=== PATIENT | female | born 1955 | race African-American/Black ===

== ENCOUNTER 2018-06-17 13:51 | Inpatient (IN) | payer SELFPAY ==
[~2018-06-17] VITALS: Ht 167.6 cm; Wt 76.2 kg
[2018-06-17] MEDS ORDERED: methylPREDNISolone SOD SUCC 125 MG/2 ML VL IV ONE (14:45)
[2018-06-17 15:39] LABS: Basophils # (auto) 0.1 uL; Basophils % (auto) 0.8 % (0.0-2.0); Eosinophils # (auto) 0 uL; Eosinophils % (auto) 0.1 % (0.0-7.0); Hematocrit 43.2 % (36.0-46.0); Hemoglobin 14.4 g/dL (12.2-16.2); Lymphocytes # (auto) 1.1 uL; Lymphocytes % (auto) 16.4 % (10.0-50.0); Mean Corpuscular Hemoglobin 29.1 pg (28.0-32.0); Mean Corpuscular Hgb Conc. 33.3 g/dL (32.0-36.0); Mean Corpuscular Volume 87.5 fL (80.0-100.0); Monocytes # (auto) 0.5 uL; Monocytes % (auto) 7.8 % (0.0-12.0); Neutrophils # (auto) 4.8 uL; Neutrophils % (auto) 74.9 % (37.0-80.0); Nucleated Red Blood Cells % 0.1 %; Platelet Count (auto) 289 10^3/uL (140-450); Red Blood Cells 4.94 10^6/uL (4.0-5.20); Red Cell Distribution Width 13.6 % (11.8-14.3); White Blood Cell 6.4 10^3/uL (4.4-10.8)
[2018-06-17 15:40] LABS: Albumin 4.1 g/dL (3.4-5.0); BUN/Creatinine Ratio 11.3; Calcium 8.9 mg/dL (8.5-10.1); Magnesium 2.4 mg/dL (1.6-2.6); Potassium 3.7 mmol/L (3.5-5.1)
[2018-06-17 15:45] LABS: Bilirubin, Total 0.9 mg/dL (0.2-1.0); Total Protein 7.9 g/dL (6.4-8.2)
[2018-06-17] MEDS ORDERED: LORazepam 2MG/ML-1ML VIAL IM ONE (21:00)
[2018-06-17] MEDS ORDERED: MORPHINE SULFATE 4 MG/ML SYR/VIAL IV PRN (21:00)
[2018-06-17] MEDS ORDERED: HALOPERIDOL LACTATE 5 MG/ML INJ VIAL IM ONE (21:00)
[2018-06-17] MEDS ORDERED: NITROGLYCERIN 0.4 MG SL TAB SL PRN (21:00)
[2018-06-17] MEDS ORDERED: LORazepam 2MG/ML-1ML VIAL IV PRN (21:00)
[2018-06-17] MEDS ORDERED: THIAMINE 100mg/ml INJ (200mg/2ml VIAL) IV ONE (21:00)
[2018-06-17] MEDS ORDERED: diphenhdrAMINE HCL 50 MG/1 ML VL IM ONE (21:00)
[2018-06-17] MEDS ORDERED: HALOPERIDOL LACTATE 5 MG/ML INJ VIAL ONE (21:14)
[2018-06-17] MEDS: SODIUM CHLORIDE 0.9% 1,000 ML IV SCH (21:50)
[2018-06-17] MEDS: ATORVASTATIN 20 MG TAB PO SCH (22:00)
[2018-06-18 07:34] LABS: Basophils # (auto) 0 uL; Basophils % (auto) 0.6 % (0.0-2.0); Eosinophils # (auto) 0 uL; Eosinophils % (auto) 0.2 % (0.0-7.0); Hematocrit 38.4 % (36.0-46.0); Hemoglobin 12.9 g/dL (12.2-16.2); Lymphocytes # (auto) 1.9 uL; Lymphocytes % (auto) 30.5 % (10.0-50.0); Mean Corpuscular Hemoglobin 29.7 pg (28.0-32.0); Mean Corpuscular Hgb Conc. 33.5 g/dL (32.0-36.0); Mean Corpuscular Volume 88.8 fL (80.0-100.0); Monocytes # (auto) 0.7 uL; Monocytes % (auto) 10.7 % (0.0-12.0); Neutrophils # (auto) 3.7 uL; Platelet Count (auto) 212 10^3/uL (140-450); Red Blood Cells 4.32 10^6/uL (4.0-5.20); Red Cell Distribution Width 13.8 % (11.8-14.3); White Blood Cell 6.4 10^3/uL (4.4-10.8)
[2018-06-18 07:37] LABS: Albumin 3.3 g/dL (3.4-5.0); Potassium 3.8 mmol/L (3.5-5.1)
[2018-06-18 07:43] LABS: BUN/Creatinine Ratio 12.2; Bilirubin, Total 0.7 mg/dL (0.2-1.0); Total Protein 6.7 g/dL (6.4-8.2)
[2018-06-18] MEDS ORDERED: THIAMINE 100mg/ml INJ (200mg/2ml VIAL) IV SCH (10:00)
[2018-06-18] MEDS: PANTOPRAZOLE 40 MG TAB PO SCH (10:28)
[2018-06-18] MEDS: SODIUM CHLORIDE 0.9% 1,000 ML IV SCH (10:28)
[2018-06-18] MEDS: ASPirin 81 mg TAB PO SCH (10:28)
[2018-06-18 11:18] LABS: Urine Bacteria NONE SEEN /hpf (None Seen); Urine Blood TRACE /uL (Negative); Urine Hyaline Cast FEW /lpf (0 - 2); Urine Mucus FEW (None Seen); Urine Specific Gravity 1.026 (1.001-1.035); Urine WBC 25 /hpf (0 - 5)
[2018-06-18 11:21] LABS: Amphetamine Screen, Urine NEGATIVE (NEGATIVE); Barbiturate Scree,Urine NEGATIVE (NEGATIVE); Benzodiazephine Screen, Urine NEGATIVE (NEGATIVE); Cannabinoid Screen, Urine NEGATIVE (NEGATIVE); Cocaine Screen, Urine NEGATIVE (NEGATIVE); Opiate Scree,Urine NEGATIVE (NEGATIVE); Phencyclidine Screen, Urine NEGATIVE (NEGATIVE)
[2018-06-18] MEDS ORDERED: cefTRIAXone 1GM/50ML D5W 50 ML IV ONE (14:30)
[2018-06-18 15:25] VITALS: BP 139/75
--- NOTE | 2018-06-18 15:25 | NUR ---
Telemetry admit from ER [facility] admitted to Telemetry unit after SBAR received. Patient oriented to OLAYINKA WAYNE, primary RN, unit, room, bed, and unit policies regarding patient care and visiting hours. Patient now on continuous telemetry monitoring, tele box # 21 and telemetry reading on arrival to unit is 97BPM. All questions and concerns addressed, patient verbalized understanding. Patient brought to unit with Ceftriazone 1g/50ml. Patient is refusing remaining amount of medication. patient educated on importance of medication. Patient states that she does not want the medication.
[2018-06-18 16:44] VITALS: BP 139/75
--- NOTE | 2018-06-18 19:25 | NUR ---
Opening Shift Note SBAR report received from HUONG Carr. Assumed care of patient, awake and alert 4x. No S/S of distress/SOB or pain. Instructed on POC and to call for assistance PRN, will continue to monitor for changes Q1hr and PRN.Physical Assessment to follow.
--- NOTE | 2018-06-18 19:58 | NUR ---
Family updated on pt status Family of DRAPERCAT, shelby Santos, updated on patient's status and condition, left her phone number , She resides in [place], states that "to her knowledge pt does not have Hx of mental issues, pt is homeless, and has Hx of thyroid, lupus and UTI". All questions and concerns addressed. verbalized understanding. She also states that "she will like a Vascular Physician consult for DC planning", which is already in place.
[2018-06-18 20:25] VITALS: BP 131/79
[2018-06-18] MEDS: ATORVASTATIN 20 MG TAB PO SCH (21:57)
[2018-06-18 22:00] VITALS: BP 131/79
--- NOTE | 2018-06-18 22:30 | NUR ---
2200 MEDS WERE REFUSED BY PATIENT. SHE STATES "THAT ALL SHE NEEDS IS TO REST" .EDUCATION PROVIDED, PT STILL REFUSED.
--- NOTE | 2018-06-18 22:31 | NUR ---
PER PT REQUEST PLEASE: DO NOT PROVIDE ANY INFORMATION TO FAMILY ASKING FOR HER. ACCOUNT DOES NOT HAVE A PASSWORD AT THE MOMENT.
[2018-06-19 05:05] VITALS: BP 140/73
[2018-06-19 06:22] LABS: Cholesterol 150 mg/dL (< 200); HDL Cholesterol 42 mg/dL (40-59); LDL Cholesterol 88 mg/dL (< 100); Triglycerides 88 mg/dL (< 150)
--- NOTE | 2018-06-19 07:50 | NUR ---
Opening Shift Note Assumed care of patient, awake and alert ambulating from bathroom. No S/S of distress/SOB or pain. Instructed on POC and to call for assist PRN, will continue to monitor for changes Q1hr and PRN.
[2018-06-19 09:04] VITALS: BP 132/82
[2018-06-19] MEDS: cefTRIAXone 1GM/50ML D5W 50 ML IV SCH (09:13)
[2018-06-19] MEDS: ASPirin 81 mg TAB PO SCH (09:18)
[2018-06-19] MEDS: PANTOPRAZOLE 40 MG TAB PO SCH (09:18)
--- NOTE | 2018-06-19 09:18 | NUR ---
Patient refused all PO medications this am, stated that she cannot take aspirin and NSAIDs as they cause heart burn. She also stated that she prefers not to take any tablets at this time. She does not take medications at home and did not need any tablets at the moment. Patient educated on rational for PO medications, but she still refused.
[2018-06-19] MEDS ORDERED: THIAMINE HCL 100 MG TAB PO SCH (10:00)
--- NOTE | 2018-06-19 12:00 | NUR ---
Patient stated that the antibiotics she received this am is causing her to feel dizzy and her blood pressure is elevated. Patient voiced that each time she takes antibiotics she has increase blood pressure and dizziness. Informed her that her MD will be notified during rounds.
[2018-06-19 13:00] VITALS: BP 158/100
--- NOTE | 2018-06-19 13:00 | NUR ---
Received phone call from Zulema, patient's sister. No password provided, informed sister that she would need to call the patient directly. The patient was informed that her sister called, she does not want to talk with her or anyone from her family. She states that her family has been against her and states that she is "crazy". Patient voiced that she is ok and she takes care of herself at home.
--- NOTE | 2018-06-19 13:10 | NUR ---
Rounding Dr. Herzog at bedside. Patient again stated that she does not wish to speak with any family member and does not want information provided to anyone. She refused psychiatric evaluation. Tele Psych was offered by MD, but patient refused stating that she is ok and does not have any psychiatric issues.
[2018-06-19 16:49] VITALS: BP_SYST 129; BP_SYST 149; BP_DIAS 75; BP_DIAS 76
--- NOTE | 2018-06-19 19:55 | NUR ---
Tele box returned to [facility]. Patient now med/surg status.
[2018-06-19 22:00] VITALS: BP 134/67
[2018-06-20 04:54] VITALS: BP 130/86
--- NOTE | 2018-06-20 06:55 | NUR ---
Shift Note The patient had an uneventful night, tolerated treatments well, had no complaints. The patient was able to sleep most of the shift, seemingly only up to go to the bathroom. The patient left instructions not to talk to any family members or give them any of her information. No family called during the shift. Will continue to monitor.
[2018-06-20 09:00] VITALS: BP_SYST 127; BP_SYST 145; BP_DIAS 77; BP_DIAS 84
[2018-06-20] MEDS: cefTRIAXone 1GM/50ML D5W 50 ML IV SCH (09:00)
[2018-06-20] MEDS: PANTOPRAZOLE 40 MG TAB PO SCH (09:51)
--- NOTE | 2018-06-20 11:20 | NUR ---
PATIENT REMOVED OWN IV REFUSED TO SIGN DISCHARGE PAPERS. TAKEN TO [facility] VIA WHEEL CHAIR NO SIGNS OF DISTRESS
--- NOTE | 2018-06-20 17:30 | NUR ---
assessment Per consult no insurance. Patient was living with father, unable to return. Patient returned home prior to being assessed. Per Janki Flores RN patient did return home with family on discharge today. Addendum: 06/20/18 at 1731 by Deepika Amezquita Amended: Links added.
== END 2018-06-20 11:15 | disposition home or self-care (01) | DRG 689 ==
LOC: ER 14:00 → TELE 20:59 → TELE-EAST 06-18 15:27 → EAST 06-19 14:06
PROVIDERS: ADMIT Internal Medicine; ATTEND Internal Medicine
DX: N39.0 Urinary tract infection, site not specified (principal); G93.41 Metabolic encephalopathy; R07.89 Other chest pain; E86.0 Dehydration; E11.9 Type 2 diabetes mellitus without complications; G43.909 Migraine, unspecified, not intractable, without status migrainosus; M79.7 Fibromyalgia; Z87.440 Personal history of urinary (tract) infections; Z90.710 Acquired absence of both cervix and uterus; Z90.721 Acquired absence of ovaries, unilateral; Z98.51 Tubal ligation status
CPT/HCPCS: 36415; 70450; 71045; 80053; 80061; 80307; 81001; 83036; 83605; 83735; 83880; 84443; 84484; 85025; 87040; 87086; 93005; 94761; 96365; 96372; G0378; J0696

== ENCOUNTER 2018-06-25 10:37 | Emergency (ER) | payer SELFPAY ==
[~2018-06-25] VITALS: Ht 167.6 cm; Wt 70.3 kg
[2018-06-25 12:03] VITALS: BP 156/89
== END 2018-06-25 11:58 | disposition home or self-care (01) ==
LOC: EDBD 10:37 → ER 10:43
DX: F41.9 Anxiety disorder, unspecified (principal); H57.11 Ocular pain, right eye; R51 Headache; M54.2 Cervicalgia; E11.9 Type 2 diabetes mellitus without complications; E78.5 Hyperlipidemia, unspecified; Z90.710 Acquired absence of both cervix and uterus; Z98.51 Tubal ligation status

== ENCOUNTER 2018-06-27 00:12 | Emergency (ER) | payer SELFPAY ==
[~2018-06-27] VITALS: Ht 167.6 cm; Wt 72.6 kg
[2018-06-27 01:20] LABS: Basophils # (auto) 0.1 uL; Basophils % (auto) 2.7 % (0.0-2.0); Eosinophils # (auto) 0.1 uL; Eosinophils % (auto) 1.4 % (0.0-7.0); Hematocrit 42.7 % (36.0-46.0); Hemoglobin 14.1 g/dL (12.2-16.2); Lymphocytes # (auto) 2.4 uL; Lymphocytes % (auto) 45.3 % (10.0-50.0); Mean Corpuscular Hemoglobin 29.4 pg (28.0-32.0); Mean Corpuscular Hgb Conc. 33.1 g/dL (32.0-36.0); Mean Corpuscular Volume 88.6 fL (80.0-100.0); Monocytes # (auto) 0.5 uL; Neutrophils # (auto) 2.2 uL; Neutrophils % (auto) 41.6 % (37.0-80.0); Nucleated Red Blood Cells % 0.3 %; Platelet Count (auto) 304 10^3/uL (140-450); Red Blood Cells 4.82 10^6/uL (4.0-5.20); Red Cell Distribution Width 14.2 % (11.8-14.3); White Blood Cell 5.2 10^3/uL (4.4-10.8)
[2018-06-27 01:33] LABS: Albumin 3.8 g/dL (3.4-5.0); Anion Gap 9 (5-15); Blood Urea Nitrogen 11 mg/dL (7-18); Calcium 8.6 mg/dL (8.5-10.1); Carbon Dioxide 25 mmol/L (21-32); Chloride 107 mmol/L (98-107); Glucose 96 mg/dL (74-106); Potassium 3.5 mmol/L (3.5-5.1); Sodium 141 mmol/L (136-145)
[2018-06-27 01:36] LABS: Alanine Aminotransferase 31 U/L (13-56); Aspartate Aminotransferase 19 U/L (15-37); BUN/Creatinine Ratio 11.5; GFR African American 76 mL/min; GFR Non-African American 63 mL/min
[2018-06-27 01:41] LABS: Alkaline Phosphatase 113 U/L (45-117); Bilirubin, Total 0.5 mg/dL (0.2-1.0); Total Protein 7.9 g/dL (6.4-8.2)
[2018-06-27 08:08] VITALS: BP 143/90
== END 2018-06-27 08:09 | disposition home or self-care (01) ==
LOC: ER 00:17
DX: F41.9 Anxiety disorder, unspecified (principal); E11.9 Type 2 diabetes mellitus without complications; E78.5 Hyperlipidemia, unspecified; I10 Essential (primary) hypertension; E07.9 Disorder of thyroid, unspecified; Z90.710 Acquired absence of both cervix and uterus; Z98.51 Tubal ligation status
CPT/HCPCS: 36415; 71045; 80053; 84484; 85025; 93005